=== PATIENT | male | born 1985 | race Two or more races ===

== ENCOUNTER 2023-07-27 12:22 | Emergency (ER) | payer OTHER ==
[~2023-07-27] VITALS: Ht 165.1 cm; Wt 74.0 kg
[2023-07-27 12:22] VITALS: TEMP 98.3
[~2023-07-27 12:22] MED LIST: FOLI-130 PO; MULT-248 PO; THIA100T80 PO
[2023-07-27 15:56] LABS: ANION GAP 14 mmol/L (8-16); CALCIUM, TOTAL 8.9 mg/dL (8.8-10.5); CARBON DIOXIDE 24 mmol/L (22-29); CHLORIDE 97 mmol/L (98-107); CREATININE 1.08 mg/dL (0.60-1.30); GLOMERULAR FILTR. RATE CALC > 60 mL/min (>60); GLUCOSE,RANDOM 92 mg/dL (70-110); POTASSIUM 4.2 mmol/L (3.5-5.1); SODIUM SERUM 134 mmol/L (136-145); UREA NITROGEN, BLOOD 8 mg/dL (7-18)
[2023-07-27 15:57] LABS: BASOPHILS % (AUTO) 0.4 % (0.0-2.0); EOSINOPHILS % (AUTO) 1.5 % (1.0-6.0); HEMATOCRIT 39.9 % (41-53); HEMOGLOBIN 13.4 g/dL (13.5-17.5); LYMPHOCYTES # (AUTO) 1.1 K/uL (1.0-4.8); LYMPHOCYTES % (AUTO) 15.1 % (22.0-44.0); MEAN CORPUSCULAR HEMOGLOBIN 32.6 pg (26.0-34.0); MEAN CORPUSCULAR HGB CONC 33.5 G/dL (31.0-37.0); MEAN CORPUSCULAR VOLUME 97 fL (80-100); MONOCYTES # (AUTO) 0.3 K/uL (0.1-1.0); MONOCYTES % (AUTO) 3.9 % (2.0-9.0); NEUTROPHILS # (AUTO) 5.8 K/uL (1.8-7.7); NEUTROPHILS % (AUTO) 79.1 % (40.0-70.0); PLATELET COUNT (AUTO) 173 K/uL (150-450); RED BLOOD CELL COUNT(AUTO) 4.11 MIL/uL (4.50-5.90); RED CELL DISTRIBUTION WIDTH 13.7 % (11.5-14.5); WHITE BLOOD COUNT (AUTO) 7.4 K/uL (4.5-11.0)
[2023-07-27 16:02] LABS: ALANINE AMINOTRANSFERASE 155 U/L (12-78); ALBUMIN 3.6 g/dL (3.4-5.0); ALKALINE PHOSPHATASE 169 U/L (46-116); ASPARTATE AMINOTRANSFERASE 234 U/L (15-37); BILIRUBIN,TOTAL 2.9 mg/dL (0.1-1.0); TOTAL PROTEIN, SERUM 8.1 g/dL (6.4-8.2)
[2023-07-27 16:12] LABS: ALCOHOL, BLOOD (SERUM) < 3 mg/dL (0-10)
[2023-07-27 19:35] VITALS: BP 153/93; PULSE 98; RESP 16
[2023-07-27] MEDS: OLANZapine 10 MG TABLET PO ONE (20:49)
[2023-07-27] MEDS: LORazepam 1 MG TABLET PO ONE (20:49)
[2023-07-27] MEDS ORDERED: OLAN10TA3 PO (21:18)
[2023-07-28] MEDS ORDERED: OLAN10TA74 PO (23:07)
== END 2023-07-27 21:45 | disposition left against medical advice (07) ==
LOC: EMS 12:27
DX: F10.239 Alcohol dependence with withdrawal, unspecified (principal); R44.3 Hallucinations, unspecified; J45.909 Unspecified asthma, uncomplicated
CPT/HCPCS: 99283; 80053; 85025; 36415; G0480